=== PATIENT | female | born 1990 | race Caucasian/White ===

== ENCOUNTER 2018-04-09 21:22 | Inpatient (IN) | payer OTHER ==
[~2018-04-09] VITALS: Ht 177.8 cm; Wt 63.5 kg
[2018-04-09 21:50] VITALS: BP 124/76
[2018-04-09] MEDS ORDERED: OXYTOCIN 30U/ 0.9% NaCL 500ML 500 ML IV ONE (22:06)
[2018-04-09] MEDS ORDERED: D5%-LACTATED RINGERS 1,000 ML IV SCH (22:06)
[2018-04-09] MEDS ORDERED: LACTATED RINGERS 1,000 ML IV SCH (22:06)
[2018-04-09] MEDS ORDERED: MISOPROSTOL 200 MCG TABLET ONE (22:10)
[2018-04-09] MEDS ORDERED: NEWBORN KIT ONE (22:10)
[2018-04-09] MEDS ORDERED: LIDOCAINE/PF 1%, 30ML ONE ×2 (22:10→22:11)
[2018-04-09] MEDS ORDERED: OXYTOCIN 30U/ 0.9% NaCL 500ML 500 ML ONE (22:10)
[2018-04-09] MEDS ORDERED: FENTANYL PF 100 MCG/2ML IVPush PRN (22:30)
[2018-04-09] MEDS ORDERED: SODIUM CHLORIDE FLUSH 10ML SYR IVF PRN (22:30)
[2018-04-09] MEDS ORDERED: PLEASE ENTER ALLERGIES MC SCH (22:30)
[2018-04-09] MEDS ORDERED: FENTANYL PF 100 MCG/2ML IV PRN (22:30)
[2018-04-09] MEDS ORDERED: ONDANSETRON 2MG/ML, 2ML IVPush PRN (22:30)
[2018-04-09 22:45] LABS: BASOPHILS # (AUTO) 0.12 x10^3/uL (0-0.1); BASOPHILS % (AUTO) 1 % (0-1); EOSINOPHILS # (AUTO) 0.04 x10^3/uL (0-0.4); EOSINOPHILS % (AUTO) 0 % (1-7); LYMPHOCYTES # (AUTO) 2.83 x10^3/uL (1-3.4); LYMPHOCYTES % (AUTO) 27 % (22-44); MD NO; MEAN CORPUSCULAR HEMOGLOBIN 27.3 pg (27.0-34.8); MEAN CORPUSCULAR HGB CONC 32.9 g/dL (32.4-35.8); MEAN CORPUSCULAR VOLUME 82.9 fL (80-100); MEAN PLATELET VOLUME 9.5 fL (7.4-10.4); MONOCYTES # (AUTO) 0.92 x10^3/uL (0.2-0.8); MONOCYTES % (AUTO) 9 % (2-9); NEUTROPHILS # (AUTO) 6.75 x10^3/uL (1.8-6.8); NEUTROPHILS % (AUTO) 63 % (42-75); PLATELET COUNT 198 x10^3/uL (130-400); RED BLOOD COUNT 4.58 x10^6/uL (3.82-5.3); RED CELL DISTRIBUTION WIDTH 14.5 % (9.6-15.2)
[2018-04-09] MEDS ORDERED: PLEASE ENTER HEIGHT AND WEIGHT MC SCH (23:00)
[2018-04-09] MEDS ORDERED: PREN1TAB60 PO (23:09)
[2018-04-09] MEDS ORDERED: CALC-112 PO (23:09)
[2018-04-10] MEDS ORDERED: HYDROcodone/APAP 10/325 MG TABLET ONE (03:09)
[2018-04-10] MEDS: OXYTOCIN 30U/ 0.9% NaCL 500ML 500 ML IV SCH ×3 (03:26→23:26)
[2018-04-10] MEDS ORDERED: ONDANSETRON 2MG/ML, 2ML IV PRN (03:30)
[2018-04-10] MEDS ORDERED: OXYcodone/APAP 5/325MG TABLET PO PRN ×2 (03:30)
[2018-04-10] MEDS ORDERED: CARBOPROST TROMETHAMINE 250 MCG/ML, 1ML IM PRN (03:30)
[2018-04-10] MEDS ORDERED: METOCLOPRAMIDE 5 MG/ML, 2ML IV PRN (03:30)
[2018-04-10] MEDS ORDERED: METHYLERGONOVINE 0.2 MG/ML IM PRN (03:30)
[2018-04-10] MEDS ORDERED: ACETAMINOPHEN 325 MG TABLET PO PRN (03:30)
[2018-04-10] MEDS ORDERED: MISOPROSTOL 200 MCG TABLET PR PRN (03:30)
[2018-04-10] MEDS ORDERED: BISACODYL 10 MG SUPP PR PRN (03:30)
[2018-04-10] MEDS ORDERED: IBUPROFEN 800 MG TABLET PO PRN (03:30)
[2018-04-10] MEDS ORDERED: GLYCERIN ADULT SUPP PR PRN (03:30)
[2018-04-10 05:00] VITALS: BP 111/64
[2018-04-10] MEDS: IBUPROFEN 600 MG TABLET PO PRN ×3 (07:02→18:47)
[2018-04-10 07:35] VITALS: BP 114/68
[2018-04-10 11:10] LABS: BASOPHILS # (AUTO) 0.04 x10^3/uL (0-0.1); BASOPHILS % (AUTO) 0 % (0-1); EOSINOPHILS # (AUTO) 0.02 x10^3/uL (0-0.4); EOSINOPHILS % (AUTO) 0 % (1-7); LYMPHOCYTES # (AUTO) 2.42 x10^3/uL (1-3.4); LYMPHOCYTES % (AUTO) 16 % (22-44); MD NO; MEAN CORPUSCULAR HEMOGLOBIN 27.2 pg (27.0-34.8); MEAN CORPUSCULAR HGB CONC 32.7 g/dL (32.4-35.8); MEAN CORPUSCULAR VOLUME 83.1 fL (80-100); MEAN PLATELET VOLUME 9.6 fL (7.4-10.4); MONOCYTES # (AUTO) 1.06 x10^3/uL (0.2-0.8); MONOCYTES % (AUTO) 7 % (2-9); NEUTROPHILS # (AUTO) 11.16 x10^3/uL (1.8-6.8); NEUTROPHILS % (AUTO) 76 % (42-75); PLATELET COUNT 224 x10^3/uL (130-400); RED CELL DISTRIBUTION WIDTH 14.7 % (9.6-15.2)
[2018-04-10 12:30] VITALS: BP 112/68
[2018-04-10] MEDS: DOCUSATE 100 MG CAPSULE PO PRN (12:43)
[2018-04-10] MEDS: PRENATAL VIT/IRON/FA 1 EACH TABLET PO SCH (12:43)
[2018-04-10 16:06] VITALS: BP 101/64
[2018-04-10 20:30] VITALS: BP 119/83
[2018-04-11 00:35] VITALS: BP 101/66
[2018-04-11] MEDS: DOCUSATE 100 MG CAPSULE PO PRN ×2 (00:53→08:04)
[2018-04-11] MEDS: IBUPROFEN 600 MG TABLET PO PRN ×2 (00:53→06:56)
[2018-04-11 07:45] VITALS: BP 106/63
[2018-04-11] MEDS: PRENATAL VIT/IRON/FA 1 EACH TABLET PO SCH (08:26)
[2018-04-11] MEDS ORDERED: IBUP-1222 PO (08:27)
== END 2018-04-11 09:45 | disposition home or self-care (01) | DRG 775 ==
LOC: LDOP 21:22 → LDIP 22:05 → 2NW 04-10 04:45
PROVIDERS: ADMIT Obstetrics & Gynecology; ATTEND Obstetrics & Gynecology
PROC: 10E0XZZ Delivery of Products of Conception, External Approach (ICD-10-PCS; principal; 2018-04-10)
PROC: 0KQM0ZZ Repair Perineum Muscle, Open Approach (ICD-10-PCS; 2018-04-10)
DX: O70.1 Second degree perineal laceration during delivery (principal); Z37.0 Single live birth; Z3A.38 38 weeks gestation of pregnancy
CPT/HCPCS: 36415; 85025; 86850; 86900; 99285

== ENCOUNTER → 2020-08-06 | Outpatient (CLI) | payer OTHER ==
[~2020-08-06] MED LIST: CALC-112 PO; IBUP-1222 PO; PREN1TAB60 PO
== END | disposition home or self-care (01) ==
LOC: STAR 11:56
PROVIDERS: ATTEND Anesthesiology
DX: Z01.812 Encounter for preprocedural laboratory examination (principal); Z20.828 Contact with and (suspected) exposure to other viral communicable diseases
CPT/HCPCS: 36415; 87635

== ENCOUNTER 2020-08-12 23:43 | Inpatient (IN) | payer OTHER ==
[~2020-08-12] VITALS: Ht 177.8 cm; Wt 68.0 kg
[2020-08-13] VITALS (7 sets, daily range): BP systolic 92–117; BP diastolic 55–75
[2020-08-13] MEDS ORDERED: LIDOCAINE 1%, 20ML ONE (00:08)
[2020-08-13] MEDS ORDERED: OXYTOCIN 30U/ 0.9% NaCL 500ML 500 ML ONE (00:09)
[2020-08-13] MEDS ORDERED: OXYTOCIN 30U/ 0.9% NaCL 500ML 500 ML IV ONE (00:30)
[2020-08-13] MEDS ORDERED: TERBUTALINE 1 MG/ML, 1ML SQ PRN (00:30)
[2020-08-13] MEDS ORDERED: ALUMINUM/MAG/SIMETHICONE 30 ML UDC PO PRN (00:30)
[2020-08-13] MEDS ORDERED: TERBUTALINE 1 MG/ML, 1ML IVPush PRN (00:30)
[2020-08-13] MEDS ORDERED: ONDANSETRON 2MG/ML, 2ML IVPush PRN (00:30)
[2020-08-13] MEDS ORDERED: LACTATED RINGERS 1,000 ML IV SCH (00:30)
[2020-08-13] MEDS ORDERED: SODIUM CITRATE/CITRIC ACID 30 ML UDC PO PRN (00:30)
[2020-08-13] MEDS ORDERED: D5%-LACTATED RINGERS 1,000 ML IV SCH (00:30)
[2020-08-13] MEDS ORDERED: OXYTOCIN 30U/ 0.9% NaCL 500ML 500 ML IV PRN ×2 (00:30)
[2020-08-13] MEDS ORDERED: METOCLOPRAMIDE 5 MG/ML, 2ML IVPush PRN (00:30)
[2020-08-13] MEDS ORDERED: FENTANYL PF 100 MCG/2ML IVPush PRN (00:30)
[2020-08-13] MEDS ORDERED: FENTANYL PF 100 MCG/2ML IV PRN (00:30)
[2020-08-13 00:40] LABS: BASOPHILS % (AUTO) 1 % (0-1); EOSINOPHILS % (AUTO) 1 % (1-7); LYMPHOCYTES % (AUTO) 24 % (22-44); MEAN CORPUSCULAR HEMOGLOBIN 26.7 pg (27.0-34.8); MEAN CORPUSCULAR HGB CONC 32.6 g/dL (32.4-35.8); MEAN PLATELET VOLUME 9.1 fL (7.4-10.4); MONOCYTES % (AUTO) 9 % (2-9); NEUTROPHILS % (AUTO) 66 % (42-75); PLATELET COUNT 249 x10^3/uL (130-400); RED BLOOD COUNT 4.87 x10^6/uL (3.82-5.3); RED CELL DISTRIBUTION WIDTH 14.4 % (9.6-15.2)
[2020-08-13 00:44] LABS: MD NO
[2020-08-13] MEDS ORDERED: OXYcodone/APAP 5/325MG TABLET ONE (04:03)
[2020-08-13] MEDS ORDERED: IBUPROFEN 600 MG TABLET ONE (04:03)
[2020-08-13] MEDS: IBUPROFEN 600 MG TABLET PO PRN ×4 (04:23→23:32)
[2020-08-13] MEDS ORDERED: MISOPROSTOL 200 MCG TABLET PR PRN (04:30)
[2020-08-13] MEDS ORDERED: BISACODYL 10 MG SUPP PR PRN (04:30)
[2020-08-13] MEDS ORDERED: SIMETHICONE 80 MG CHEW TAB PO PRN (04:30)
[2020-08-13] MEDS ORDERED: OXYTOCIN 30U/ 0.9% NaCL 500ML 500 ML IV SCH (04:30)
[2020-08-13] MEDS ORDERED: GLYCERIN ADULT SUPP PR PRN (04:30)
[2020-08-13] MEDS ORDERED: OXYcodone/APAP 5/325MG TABLET PO PRN (04:30)
[2020-08-13] MEDS ORDERED: CARBOPROST TROMETHAMINE 250 MCG/ML, 1ML IM PRN (04:30)
[2020-08-13] MEDS ORDERED: HYDROcodone/APAP 5/325 TABLET PO PRN (04:30)
[2020-08-13] MEDS ORDERED: ONDANSETRON 2MG/ML, 2ML IV PRN (04:30)
[2020-08-13] MEDS: DOCUSATE 100 MG CAPSULE PO PRN (07:28)
[2020-08-13] MEDS: PRENATAL VIT/IRON/FA 1 EACH TABLET PO SCH (07:28)
[2020-08-13 12:29] LABS: BASOPHILS % (AUTO) 0 % (0-1); EOSINOPHILS % (AUTO) 0 % (1-7); LYMPHOCYTES % (AUTO) 14 % (22-44); MEAN CORPUSCULAR HEMOGLOBIN 26.4 pg (27.0-34.8); MEAN CORPUSCULAR HGB CONC 32.2 g/dL (32.4-35.8); MEAN PLATELET VOLUME 9.6 fL (7.4-10.4); MONOCYTES % (AUTO) 7 % (2-9); NEUTROPHILS % (AUTO) 78 % (42-75); PLATELET COUNT 256 x10^3/uL (130-400); RED BLOOD COUNT 4.77 x10^6/uL (3.82-5.3); RED CELL DISTRIBUTION WIDTH 14.1 % (9.6-15.2)
[2020-08-13 12:33] LABS: MD NO
[2020-08-14 07:15] VITALS: BP 95/60
[2020-08-14] MEDS: IBUPROFEN 600 MG TABLET PO PRN (07:46)
[2020-08-14] MEDS: PRENATAL VIT/IRON/FA 1 EACH TABLET PO SCH (07:46)
[2020-08-14] MEDS: DOCUSATE 100 MG CAPSULE PO PRN (07:46)
[2020-08-14] MEDS ORDERED: IBUP-1222 PO (07:47)
== END 2020-08-14 12:09 | disposition home or self-care (01) | DRG 807 ==
LOC: LDOP 23:43 → LDIP 08-13 00:06 → 2NW 08-13 05:43
PROVIDERS: ADMIT Obstetrics & Gynecology; ATTEND Obstetrics & Gynecology
PROC: 10E0XZZ Delivery of Products of Conception, External Approach (ICD-10-PCS; principal; 2020-08-13)
PROC: 10907ZC Drainage of Amniotic Fluid, Therapeutic from Products of Conception, Via Natural or Artificial Opening (ICD-10-PCS; 2020-08-13)
PROC: 0HQ9XZZ Repair Perineum Skin, External Approach (ICD-10-PCS; 2020-08-13)
DX: O66.0 Obstructed labor due to shoulder dystocia (principal); Z37.0 Single live birth; O99.284 Endocrine, nutritional and metabolic diseases complicating childbirth; E78.00 Pure hypercholesterolemia, unspecified; Z3A.40 40 weeks gestation of pregnancy; Z82.3 Family history of stroke; Z83.3 Family history of diabetes mellitus; O70.0 First degree perineal laceration during delivery; Z88.8 Allergy status to other drugs, medicaments and biological substances; Z88.5 Allergy status to narcotic agent
CPT/HCPCS: 36415; 85025; 86592; 86850; 86900; G0378

== ENCOUNTER 2020-09-14 15:26 | Emergency (ER) | payer OTHER ==
[~2020-09-14] VITALS: Ht 177.8 cm; Wt 58.0 kg
[2020-09-14 16:06] LABS: BASOPHILS % (AUTO) 1 % (0-1); EOSINOPHILS % (AUTO) 4 % (1-7); LYMPHOCYTES % (AUTO) 23 % (22-44); MEAN CORPUSCULAR HEMOGLOBIN 26.9 pg (27.0-34.8); MEAN CORPUSCULAR HGB CONC 32.9 g/dL (32.4-35.8); MEAN PLATELET VOLUME 7.7 fL (7.4-10.4); MONOCYTES % (AUTO) 9 % (2-9); NEUTROPHILS % (AUTO) 63 % (42-75); PLATELET COUNT 258 x10^3/uL (130-400); RED BLOOD COUNT 5.51 x10^6/uL (3.82-5.3); RED CELL DISTRIBUTION WIDTH 14.7 % (9.6-15.2)
[2020-09-14 16:11] LABS: MD NO
[2020-09-14 16:18] LABS: ALBUMIN 3.7 g/dL (3.4-5.0); ANION GAP 6 mmol/L (5-15); CALCIUM 8.8 mg/dL (8.5-10.1); CHLORIDE 108 mmol/L (98-107); CREATININE 0.82 mg/dL (0.55-1.02)
[2020-09-14 16:51] LABS: MICROSCOPIC AUTO
[2020-09-14 17:22] VITALS: BP 116/68
--- NOTE | 2020-09-14 17:23 | NUR ---
UPDATED ON ESTIMATED POC VITALS UPDATED PROVIDED WITH WATER/CRACKERS DENIES DISCOMFORT AT THIS TIME
[2020-09-14 17:33] LABS: CLUE CELLS NONE SEEN (NONE SEEN); WET PREP WBCS FEW (FEW)
== END 2020-09-14 18:07 | disposition home or self-care (01) ==
LOC: ED 16:46
DX: N61.0 Mastitis without abscess (principal); N89.8 Other specified noninflammatory disorders of vagina; R10.2 Pelvic and perineal pain; R50.9 Fever, unspecified
CPT/HCPCS: 36415; 76830; 80048; 81001; 82040; 84703; 85025; 87086; 87210; 87491; 87591; 87808; 99284